=== PATIENT | female | born 1995 | race Caucasian/White ===

== ENCOUNTER → 2019-03-23 | Outpatient (CLI) | payer OTHER ==
--- NOTE | 2019-03-23 11:38 | Diagnostic Imaging Report ---
EXAM: US ABDOMEN COMPLETE DATE: 03/23/2019 10:11 AM INDICATION: ^[id number] ^[id number] ^ABDOMEN PAIN COMPARISON: None FINDINGS: Grayscale and color flow Doppler ultrasound of the abdomen was performed. Liver: 13.5 cm span. No hepatomegaly. Mildly hyperechoic parenchyma which is nonspecific but may be seen with steatosis. No intrahepatic mass or dilatation of bile ducts. Main portal vein 0.5 cm, nondilated, normal hepatopetal flow. Spleen: 8.6 cm span, no splenomegaly. Biliary: No cholelithiasis or thickening of the gallbladder wall. Sonographic Diaz sign negative. Common bile duct 0.1 cm, normal. Pancreas: Visualized portions show no mass or duct dilatation. Right kidney: 10.2 x 3.2 x 4.0 cm. Normal cortical echogenicity. No hydronephrosis or contour deforming mass. Left kidney: 10.1 x 4.0 x 4.5 cm. Normal cortical echogenicity. No hydronephrosis or contour deforming mass. The graft vessels: Visualized portions of aorta and IVC unremarkable. Ascites: None IMPRESSION: 1. No sonographic evidence for acute abdominal pathology. 2. No cholelithiasis or dilatation of the biliary tree. Signed by: Dr. Yasir Tian M.D. on 03/23/2019 11:34 AM
== END ==
LOC: US 10:01
PROVIDERS: ATTEND Internal Medicine Medical Oncology
DX: R10.9 Unspecified abdominal pain (principal)
CPT/HCPCS: 76700